=== PATIENT | male | born 1990 | race Caucasian/White ===

== ENCOUNTER 2017-02-24 15:46 | Emergency (ER) | payer SELFPAY ==
[~2017-02-24] VITALS: Ht 162.6 cm; Wt 68.0 kg
[2017-02-24 15:50] VITALS: Ht 162.6 cm; Wt 68.0 kg
--- NOTE | 2017-02-24 17:00 | ERA ---
ER Documentation Chief Complaint Date/Time DATE: 02/24/17 TIME: 17:00 Chief Complaint pt bib self with c/o left rib pain s/p fall approx 3 wks ago HPI The patient is a 27-year-old female, presenting to the ER because of left ribs pain for the last 3 weeks after he had mechanical fall; the pain is worse with movement. He denies fever, chills, neck pain, dyspnea, abdominal pain, vomiting , dysuria. He smokes and drinks socially Past medical/surgical history: None ROS All systems reviewed and are negative except as per history of present illness. Medications Home Meds Active Scripts Ibuprofen* (Motrin*) 600 Mg Tab, 600 MG PO Q6, #30 TAB Prov:GM ROSALES MD 02/24/17 Allergies Allergies: Coded Allergies: No Known Allergy (Unverified , 02/24/17) Physical Exam Vitals Vital Signs Date Time Temp Pulse Resp B/P Pulse Ox O2 Delivery O2 Flow Rate FiO2 02/24/17 15:50 98.9 83 16 129/75 99 Physical Exam Const: No acute distress. Head: Atraumatic. Eyes: Normal Conjunctiva. ENT: Normal External Ears, Nose and Mouth. Neck: Full range of motion. No meningismus. Resp: Clear to auscultation bilaterally. Cardio: Regular rate and rhythm.Left chest with minimal tenderness, no crepitus, ecchymosis Abd: Soft, non distended, normal bowel sounds, non tender. Skin: No petechiae or rashes. Back: No midline or flank tenderness. Ext: No cyanosis, or edema. Neur: Awake and alert. No focal deficit Psych: Normal Mood and Affect. Procedures/[place] [id number] Radiology Main Line: [phone] DIAGNOSTIC IMAGING REPORT Patient: GONZÁLEZ DAVID : 1990 Age: 27 Sex: M MR #: [id number] DOS: 02/24/17 1704 Ordering MD: GM ROSALES MD Location: [facility] Room/Bed: PROCEDURE: XR Chest. CLINICAL INDICATION: Chest pain. TECHNIQUE: Single frontal view. COMPARISON: None. FINDINGS: The lungs are clear. The heart size is normal. There is no pleural effusion. There is no pneumothorax. IMPRESSION: 1. Normal chest radiograph. RPTAT: QQ .Reid Toney MD, MD Date Time Electronically viewed and signed by .Reid Toney MD, MD on 02/24/2017 17:56 .R/ CC: GM ROSALES MD MEDICAL MAKING DECISION: The patient is a 27-year-old male, presenting with acute left rib contusion. He is stable for outpatient follow-up. The differential diagnoses considered include but are not limited to rib fracture, pulmonary contusion, cardiac contusion Departure Diagnosis: Primary Impression: Rib pain Condition: Good Comments He was discharged with Motrin I discussed the findings with the patient. I advised the patient to follow-up with the primary physician in about 1-2 days, sooner if needed and return if any concern. GM ROSALES MD Feb 24, 2017 17:00
--- NOTE | 2017-02-24 17:56 | RADRPT ---
PROCEDURE: XR Chest. CLINICAL INDICATION: Chest pain. TECHNIQUE: Single frontal view. COMPARISON: None. FINDINGS: The lungs are clear. The heart size is normal. There is no pleural effusion. There is no pneumothorax. IMPRESSION: 1. Normal chest radiograph. RPTAT: QQ .Reid Toney MD, Date Time Electronically viewed and signed by .Reid Toney MD, on 02/24/2017 17:56 .R/
[2017-02-24] MEDS ORDERED: IBUP-1542 PO (18:25)
== END 2017-02-24 18:56 | disposition home or self-care (01) ==
LOC: FTE 15:46
DX: R07.81 Pleurodynia (principal)
CPT/HCPCS: 71010